=== PATIENT | female | born 1970 | race Hispanic/Latino ===

== ENCOUNTER 2018-08-11 11:27 | Emergency (ER) | payer SELFPAY ==
[2018-08-11] MEDS ORDERED: NACL 0.9% 1000 ML 1,000 ML IV ONE ×2 (11:53→14:59)
[2018-08-11] MEDS ORDERED: ZOFRAN IV ONE ×2 (11:53→14:59)
--- NOTE | 2018-08-11 11:55 | Emergency Department Report ---
HPI - General Chief Complaint: Abdominal Pain Time Seen by Provider: 08/11/18 11:47 - HPI HPI: 47-year-old female presents to the emergency department via EMS from home with complaint of a one-week history of abdominal pain and diarrhea with some associated nausea and vomiting. She denies any fever, chest pain, shortness of breath. She has a past medical history of ano-dhnqloi-guztmsnke diabetes and hypothyroidism. The patient says that she has been compliant with her medications. No recent travel or sick contacts at home. Primary care physician is a doctor Jose Manuel. ED Past Medical Hx - Past Medical History Hx Diabetes: Yes Additional medical history: Hyperthyroidism - Social History Smoking Status: Current Every Day Smoker Substance Use Type: None - Medications Home Medications: Home Medications Medication Instructions Recorded Confirmed Last Taken Type Ondansetron [Zofran Odt] 4 mg PO Q8HR PRN #12 tab.rapdis 08/11/18 Unknown Rx Sulfamethoxazole/Trimethoprim 1 each PO BID #14 tablet 08/11/18 Unknown Rx [Bactrim DS TAB] ED Review of Systems ROS: Stated complaint: DIABETIC/ N/V /ABD PAIN Other details as noted in HPI Comment: All other systems reviewed and negative Constitutional: denies: chills, fever Eyes: denies: eye pain, vision change ENT: denies: ear pain, throat pain Respiratory: denies: cough, shortness of breath Cardiovascular: denies: chest pain, palpitations Gastrointestinal: abdominal pain, nausea, vomiting, diarrhea Genitourinary: denies: dysuria, frequency Musculoskeletal: denies: back pain, arthralgia Skin: denies: rash, lesions Neurological: denies: headache, weakness Physical Exam - Physical Exam Vital Signs: Vital Signs 08/11/18 11:48 Temperature 98.1 F Pulse Rate 120 H Respiratory 16 Rate Blood Pressure 108/71 [Left] O2 Sat by Pulse 98 Oximetry Physical Exam: GENERAL: The patient is well-developed well-nourished. HEENT: Normocephalic. Atraumatic. Patient has moist mucous membranes. EYES: Extraocular motions are intact. Pupils are equal and reactive to light bilaterally. NECK: Supple. Trachea is midline. CHEST/LUNGS: Clear to auscultation. There is no respiratory distress noted. HEART/CARDIOVASCULAR: Regular. There is mild tachycardia. There is no obvious murmur. ABDOMEN: Abdomen is soft. Left lower quadrant abdominal tenderness to palpation. No guarding or rebound tenderness. Patient has normal bowel sounds. There is no abdominal distention. SKIN: Skin is warm and dry. NEURO: The patient is awake, alert, and oriented. The patient is cooperative. The patient has no focal neurologic deficits. The patient has normal speech. MUSCULOSKELETAL: There is no tenderness or deformity. There is no limitation r jese of motion. There is no evidence of acute injury. ED Course Vital Signs 08/11/18 11:48 Temperature 98.1 F Pulse Rate 120 H Respiratory 16 Rate Blood Pressure 108/71 [Left] O2 Sat by Pulse 98 Oximetry ED Medical Decision Making - Lab Data Result diagrams: 08/11/18 12:10 08/11/18 12:10 - Radiology Data Radiology results: report reviewed, image reviewed interpreted by me: Abdominal x-ray shows nonspecific nonobstructive bowel gas CT ABDOMEN PELVIS WITH CONTRAST: HISTORY: abdominal pain. COMPARISON: none. TECHNIQUE: Helical CT in 1.25mm intervals following IV contrast. Sagittal and coronal reconstructions. FINDINGS: Lung bases: Normal. Liver: Normal. Biliary system: Normal. Pancreas: The pancreas appears small in size but otherwise unremarkable. Spleen: Normal. Kidneys/ureters/bladder: Normal. Adrenal glands: Normal. Aorta: Normal. Intestines: No oral contrast was administered which limits this exam. Mild to moderate circumferential thickening of the transverse colon, descending colon and sigmoid colon is suspected. No evidence for pneumatosis, obvious mass or obstruction. The stomach, small bowel loops and proximal colon are unremarkable. Appendix: Normal. Pelvic viscera: There appear to be a few small fibroids at the uterine fundus measuring up to 2 cm. 1 cm right ovarian cyst is identified. Ascites: None. Adenopathy: None. Musculoskeletal: Mild degenerative disc disease in the lumbar spine. IMPRESSION: Circumferential thickening of most of the colon is identified consistent with a nonspecific colitis. Mild uterine fibroid disease. 1 cm right ovarian cyst. Transcribed By: TTR Dictated By: AYDE SUAZO JR, MD Electronically Authenticated By: AYDE SUAZO JR, MD Signed Date/Time: 08/11/18 2082 - Medical Decision Making Patient presents with a one-week history of nausea, vomiting and abdominal pain. She also presents with hypoglycemia despite medication compliance. She has a blood sugar of about 500 but there is no elevation in her anion gap or venous acidosis. She was given IV fluid resuscitation and a dose of IV insulin and her blood sugar came down to a much more reasonable level, about 160. CT of the abdomen and pelvis with IV contrast shows some nonspecific colitis, a mild uterine fibroid and a 1 cm right ovarian cyst. Patient's vital signs stable throughout her ED course. She was able to keep down some fluid without any return of her nausea or vomiting. The patient was ambulatory prior to discharge and both appears and says that she feels stable. Patient will be discharged home to follow up with primary care. She was given some nausea medication and antibiotics. She will return to the ER with any worsening of her symptoms or any acute distress. - Differential Diagnosis DKA, HHNK, Colitis, Gastroparesis Critical Care Time: No Critical care attestation.: If time is entered above; I have spent that time in minutes in the direct care of this critically ill patient, excluding procedure time. ED Disposition Clinical Impression: Hyperglycemia, Colitis, Dehydration Nausea & vomiting Qualifiers: Vomiting type: unspecified Vomiting Intractability: non-intractable Qualified Code(s): R11.2 - Nausea with vomiting, unspecified Abdominal pain Qualifiers: Abdominal location: lower abdomen, unspecified Qualified Code(s): R10.30 - Lower abdominal pain, unspecified Disposition: - TO HOME OR SELFCARE Is pt being admited?: No Condition: Stable Instructions: Acute Nausea and Vomiting (ED), Abdominal Pain (ED), Diabetic Hyperglycemia (ED), Infectious Colitis (ED) Additional Instructions: Please follow up with a primary care physician in the next few days. Return to the emergency Department with any worsening of your symptoms or any acute distress. Prescriptions: Ondansetron [Zofran Odt] 4 mg PO Q8HR PRN #12 tab.rapdis PRN Reason: Nausea Sulfamethoxazole/Trimethoprim [Bactrim DS TAB] 1 each PO BID #14 tablet Referrals: [facility] [Outside] - 2-3 Days Time of Disposition: 16:42
[2018-08-11 12:25] LABS: Basophils # (Auto) 0.1 K/mm3 (0.0-0.1); Basophils % (Auto) 0.5 % (0.0-1.8); Eosinophils # (Auto) 0.7 K/mm3 (0.0-0.4); Eosinophils % (Auto) 6.5 % (0.0-4.3); Hematocrit 38.7 % (30.3-42.9); Hemoglobin 12.8 gm/dl (10.1-14.3); Lymphocytes # (Auto) 1.6 K/mm3 (1.2-5.4); Lymphocytes % (Auto) 14.1 % (13.4-35.0); Mean Corpuscular HGB Conc 33 % (30-34); Mean Corpuscular Volume 82 fl (79-97); Monocytes # (Auto) 1.3 K/mm3 (0.0-0.8); Monocytes % (Auto) 11.7 % (0.0-7.3); Platelet Count 440 K/mm3 (140-440); Red Cell Distribution Width 12.9 % (13.2-15.2)
[2018-08-11 12:41] LABS: Alanine Aminotransferase 9 units/L (7-56); Albumin 2.9 g/dL (3.9-5); BUN/Creatinine Ratio 15; Blood Urea Nitrogen 9 mg/dL (7-17); Calcium 8.3 mg/dL (8.4-10.2); Hemolysis Index 5
[2018-08-11] MEDS ORDERED: HumuLIN R IV ONE (12:53)
--- NOTE | 2018-08-11 13:26 | XRay Report ---
ABDOMEN, 2 views: History: Abdominal pain. There is no evidence of free air beneath the diaphragms. The gas pattern within the abdomen is unremarkable. There is no evidence of bowel dilatation, significant air-fluid levels, or pathologic calcifications. Organ shadows are unremarkable. IMPRESSION: Unremarkable abdomen.
[2018-08-11] MEDS ORDERED: MORPHINE IV ONE (13:31)
--- NOTE | 2018-08-11 14:09 | Cat Scan Report ---
CT ABDOMEN PELVIS WITH CONTRAST: HISTORY: abdominal pain. COMPARISON: none. TECHNIQUE: Helical CT in 1.25mm intervals following IV contrast. Sagittal and coronal reconstructions. FINDINGS: Lung bases: Normal. Liver: Normal. Biliary system: Normal. Pancreas: The pancreas appears small in size but otherwise unremarkable. Spleen: Normal. Kidneys/ureters/bladder: Normal. Adrenal glands: Normal. Aorta: Normal. Intestines: No oral contrast was administered which limits this exam. Mild to moderate circumferential thickening of the transverse colon, descending colon and sigmoid colon is suspected. No evidence for pneumatosis, obvious mass or obstruction. The stomach, small bowel loops and proximal colon are unremarkable. Appendix: Normal. Pelvic viscera: There appear to be a few small fibroids at the uterine fundus measuring up to 2 cm. 1 cm right ovarian cyst is identified. Ascites: None. Adenopathy: None. Musculoskeletal: Mild degenerative disc disease in the lumbar spine. IMPRESSION: Circumferential thickening of most of the colon is identified consistent with a nonspecific colitis. Mild uterine fibroid disease. 1 cm right ovarian cyst.
[2018-08-11] MEDS ORDERED: MORPHINE ONE (14:33)
[2018-08-11 18:10] VITALS: BP 98/58
== END 2018-08-11 18:12 | disposition home or self-care (01) ==
LOC: ED 11:27
DX: K52.9 Noninfective gastroenteritis and colitis, unspecified (principal); E86.0 Dehydration; E11.65 Type 2 diabetes mellitus with hyperglycemia; E05.90 Thyrotoxicosis, unspecified without thyrotoxic crisis or storm; F17.200 Nicotine dependence, unspecified, uncomplicated
CPT/HCPCS: 36415; 74019; 74177; 80053; 82140; 82805; 82962; 83690; 84439; 84443; 84703; 85025; 96361; 96374; 96375; 96376; 99285; J2270; J2405; J7030; Q9967; J1815